=== PATIENT | male | born 1970 | race Caucasian/White ===

== ENCOUNTER 2017-01-18 02:33 | Emergency (ER) | payer BC ==
[~2017-01-18] VITALS: Ht 180.3 cm; Wt 143.0 kg
[~2017-01-18 02:33] MED LIST: ATV5 PO; LISI-788 PO; PRLSR20 PO
[2017-01-18 02:35] VITALS: Ht 180.3 cm; Wt 143.0 kg
[2017-01-18] MEDS ORDERED: ONDANSETRON INJ 2 MG/ML 2 ML VIAL ONE (03:01)
--- NOTE | 2017-01-18 03:03 | EMERGENCY ROOM VISIT NOTE ---
History Report prepared by Ismael: Trevin Menard Under the Supervision of: Malaika LunaO. First contact with patient: 02:40 Chief Complaint: URINARY SYMPTOMS Stated Complaint: TROUBLE URINATING,DIZZY,NAUSEOUS,WEAK History of Present Illness The patient is a 46 year old male who presents to the Emergency Room with complaints of resolved lightheadedness occurring a few minutes prior to arrival. He woke up with a sudden urge to urinate. He states that he normally does not get up to urinate in the middle of the night. When he attempted to urinate, he was unable to urinate as normal. The patient was able to have urinary discharge in dribbles. While struggling to urinate, the patient became nauseous, dizzy, lightheaded, weakness, and felt as though he was about to pass out. He did not lose consciousness. He denies any pain. His symptoms persisted for a few minutes. He was able to urinate as normal after a few minutes. The patient has a history of anxiety. He was started on Lexapro 3 days ago. The patient denies fevers, chills, or any other complaints. Source of History: patient Onset: a few minutes prior to arrival Position: other (global) Symptom Intensity: No pain Quality: other (lightheaded) Timing: resolved Associated Symptoms: + weakness, No LOC, No chills, No fevers Review of Systems See HPI for pertinent positives and negatives. A total of ten systems were reviewed and were otherwise negative. Past Medical & Surgical Medical Problems: (1) Anxiety (2) Epigastric abdominal pain (3) Shortness of breath (4) Thrombosed external hemorrhoid (5) Vertigo Family History Patient reports no known family medical history. Social History Smoking Status: Never Smoker Alcohol Use: none Drug Use: none Marital Status: Occupation Status: employed Current/Historical Medications Scheduled Escitalopram (Lexapro), 5 MG PO DAILY Lisinopril/Hctz (Zestoretic 20MG/25MG), 1 TAB PO DAILY Omeprazole (Prilosec), 20 MG PO DAILY Scheduled PRN Lorazepam (Ativan), 1 MG PO Q6H PRN for Anxiety Allergies Coded Allergies: No Known Allergies (Unverified , 01/18/17) Physical Exam Vital Signs Date Time Temp Pulse Resp B/P Pulse Ox O2 Delivery O2 Flow Rate FiO2 01/18/17 04:31 71 16 130/80 96 Room Air 01/18/17 04:00 73 16 121/77 94 Room Air 01/18/17 03:31 120/77 01/18/17 03:30 76 17 96 01/18/17 03:20 Room Air 01/18/17 03:20 Room Air 01/18/17 03:15 75 18 01/18/17 03:04 125/75 01/18/17 03:01 139/85 01/18/17 03:00 81 19 145/84 01/18/17 03:00 79 01/18/17 02:35 36.9 80 20 160/92 98 Room Air Physical Exam GENERAL: Awake, alert, well-appearing, in no distress HENT: Normocephalic, atraumatic. Oropharynx unremarkable. EYES: Normal conjunctiva. Sclera non-icteric. NECK: Supple. No nuchal rigidity. FROM. No JVD. RESPIRATORY: Clear to auscultation. CARDIAC: Regular rate, normal rhythm. Extremities warm and well perfused. Pulses equal. ABDOMEN: Soft, non-distended. No tenderness to palpation. No rebound or guarding. No masses. RECTAL: Deferred. MUSCULOSKELETAL: Chest examination reveals no tenderness. The back is symmetrical on inspection without obvious abnormality. There is no CVA tenderness to palpation. No joint edema. LOWER EXTREMITIES: Calves are equal size bilaterally and non-tender. No edema. No discoloration. NEURO: Normal sensorium. No sensory or motor deficits noted. SKIN: No rash or jaundice noted. Medical Decision & Procedures Laboratory Results 01/18/17 03:13 Red Blood Count 5.06, Mean Corpuscular Volume 82.4, Mean Corpuscular Hemoglobin 28.9, Mean Corpuscular Hemoglobin Concent 35.0, Mean Platelet Volume 8.5, Neutrophils (%) (Auto) 63.6, Lymphocytes (%) (Auto) 25.1, Monocytes (%) (Auto) 9.3, Eosinophils (%) (Auto) 1.4, Basophils (%) (Auto) 0.4, Neutrophils # (Auto) 5.70, Lymphocytes # (Auto) 2.26, Monocytes # (Auto) 0.84, Eosinophils # (Auto) 0.13, Basophils # (Auto) 0.04 01/18/17 03:13 Test 01/18/17 03:13 01/18/17 03:40 White Blood Count 8.99 K/uL (4.8-10.8) Red Blood Count 5.06 M/uL (4.7-6.1) Hemoglobin 14.6 g/dL (14.0-18.0) Hematocrit 41.7 % (42-52) Mean Corpuscular Volume 82.4 fL (80-100) Mean Corpuscular Hemoglobin 28.9 pg (25-34) Mean Corpuscular Hemoglobin Concent 35.0 g/dl (32-36) Platelet Count 222 K/uL (130-400) Mean Platelet Volume 8.5 fL (7.4-10.4) Neutrophils (%) (Auto) 63.6 % Lymphocytes (%) (Auto) 25.1 % Monocytes (%) (Auto) 9.3 % Eosinophils (%) (Auto) 1.4 % Basophils (%) (Auto) 0.4 % Neutrophils # (Auto) 5.70 K/uL (1.4-6.5) Lymphocytes # (Auto) 2.26 K/uL (1.2-3.4) Monocytes # (Auto) 0.84 K/uL (0.11-0.59) Eosinophils # (Auto) 0.13 K/uL (0-0.5) Basophils # (Auto) 0.04 K/uL (0-0.2) RDW Standard Deviation 39.8 fL (36.4-46.3) RDW Coefficient of Variation 13.2 % (11.5-14.5) Immature Granulocyte % (Auto) 0.2 % Immature Granulocyte # (Auto) 0.02 K/uL (0.00-0.02) Anion Gap 9.0 mmol/L (3-11) Est Creatinine Clear Calc Drug Dose 101.7 ml/min Estimated GFR () 75.3 Estimated GFR (Non- 65.0 BUN/Creatinine Ratio 18.5 (10-20) Calcium Level 8.6 mg/dl (8.5-10.1) Total Bilirubin 0.2 mg/dl (0.2-1) Direct Bilirubin < 0.1 mg/dl (0-0.2) Aspartate Amino Transf (AST/SGOT) 14 U/L (15-37) Alanine Aminotransferase (ALT/SGPT) 33 U/L (12-78) Alkaline Phosphatase 53 U/L (45-117) Total Protein 7.1 gm/dl (6.4-8.2) Albumin 4.0 gm/dl (3.4-5.0) Urine Color YELLOW Urine Appearance CLEAR (CLEAR) Urine pH 5.5 (4.5-7.5) Urine Specific [place] 1.012 (1.000-1.030) Urine Protein NEG (NEG) Urine Glucose (UA) NEG (NEG) Urine Ketones NEG (NEG) Urine Occult Blood NEG (NEG) Urine Nitrite NEG (NEG) Urine Bilirubin NEG (NEG) Urine Urobilinogen NEG (NEG) Urine Leukocyte Esterase NEG (NEG) Laboratory results reviewed by me Medications Administered Medications (Trade) Dose Ordered Sig/Lisa Route Start Time Stop Time Status Last Admin Dose Admin Ondansetron HCl 4 mg 4 mg STK-MED ONCE .ROUTE 01/18/17 03:01 01/18/17 03:02 DC 01/18/17 03:18 4 MG Sodium Chloride (Nss 1000ml) 1,000 ml @ 999 mls/hr Q1H1M STAT IV 01/18/17 03:07 01/18/17 04:07 DC 01/18/17 03:18 999 MLS/HR ECG Indication: weakness, other (Lightheadedness) Rate (beats per minute): 76 Rhythm: normal sinus Findings: no acute ischemic change, other (normal intervals; normal axis) ED Course 0240: The patient was evaluated in room B12B. A complete history and physical exam was performed. 0307: Sodium Chloride 1000 ml @ 999 mls/hr IV 0437: I reevaluated the patient who complains of slight dizziness but feels comfortable to go home. Discussed results and discharge instructions: He verbalized understanding and agreement. The patient is ready for discharge. Medical Decision Differential diagnosis includes but is not limited to urinary tract infection, ureteral lithiasis, anxiety, micturition syncope. Patient on reexamination is resting in no distress at 4:40 AM he is nonfocal neurologically and states he's improved. I discussed the evaluation with the patient and the patient's . This may be an adverse medication reaction and/ or anxiety. The was asking if the patient needed a CT of his brain I do not suspect TIA CVA or any neurologic issue at this point in time. Patient states that he is very much improved after IV fluids his nausea has decreased. I suspect he may have had near syncope with an anxiety component after he tried to urinate and could not. Impression Primary Impression: Near syncope Additional Impression: Anxiety Scribe Attestation The scribe's documentation has been prepared under my direction and personally reviewed by me in its entirety. I confirm that the note above accurately reflects all work, treatment, procedures, and medical decision making performed by me. Departure Information Dispostion Home / Self-Care Referrals Carrillo Randolph M.D. (PCP) Forms HOME CARE DOCUMENTATION FORM, IMPORTANT VISIT INFORMATION Patient Instructions Anxiety Disorder, ED Near Syncope Unkn, My [facility] Problem Qualifiers
[2017-01-18] MEDS ORDERED: SODIUM CHLORIDE 0.9% 1000ML 1,000 ML IV STA (03:07)
[2017-01-18 03:25] LABS: BASO % 0.4 %; BASO ABS # 0.04 K/uL (0-0.2); COMPLETE YES; EOS % 1.4 %; HEMATOCRIT 41.7 % (42-52); IG% 0.2 %; LYMPH % 25.1 %; LYMPH ABS # 2.26 K/uL (1.2-3.4); MEAN CELL VOLUME 82.4 fL (80-100); MEAN CORPUSCULAR HEMOGLOBIN 28.9 pg (25-34); MEAN PLATELET VOLUME 8.5 fL (7.4-10.4); MONO % 9.3 %; NEUT % 63.6 %; PLATELET COUNT 222 K/uL (130-400); RED BLOOD COUNT 5.06 M/uL (4.7-6.1); WHITE BLOOD COUNT 8.99 K/uL (4.8-10.8)
[2017-01-18 03:47] LABS: ALT/SGPT 33 U/L (12-78); AST/SGOT 14 U/L (15-37); BLOOD UREA NITROGEN 24 mg/dl (7-18); BUN/CREATININE RATIO 18.5 (10-20); CALCIUM 8.6 mg/dl (8.5-10.1); CARBON DIOXIDE 26 mmol/L (21-32); CHLORIDE 101 mmol/L (98-107); GLUCOSE 120 mg/dl (70-99); POTASSIUM 3.5 mmol/L (3.5-5.1); SODIUM 136 mmol/L (136-145)
[2017-01-18 03:50] LABS: ALKALINE PHOSPHATASE 53 U/L (45-117)
[2017-01-18 04:09] LABS: MANUAL MICROSCOPIC REQUIRED? NO; REVIEW REQ? NO; URINE APPEARANCE CLEAR (CLEAR); URINE BILIRUBIN NEG (NEG); URINE COLOR YELLOW; URINE NITRITE NEG (NEG); URINE PH 5.5 (4.5-7.5); URINE SPECIFIC GRAVITY 1.012 (1.000-1.030); UROBILINOGEN NEG (NEG); ZZUR CULT IF INDIC CLEAN CATCH NO
[2017-01-18] MEDS ORDERED: ESCI10TA17 PO (04:11)
[2017-01-18] MEDS ORDERED: ATV/1 PO (04:12)
[2017-01-18 04:48] VITALS: BP 130/80; PULSE 71; TEMP 36.9; O2SAT 96
== END 2017-01-18 04:48 | disposition home or self-care (01) ==
LOC: C.EDB 02:34
DX: R55 Syncope and collapse (principal); F41.9 Anxiety disorder, unspecified; Z79.899 Other long term (current) drug therapy